=== PATIENT | female | born 1970 | race Two or more races ===

== ENCOUNTER 2018-02-14 06:00 | Day surgery (SDC) | payer OTHER ==
[~2018-02-14] VITALS: Ht 167.6 cm; Wt 67.9 kg
[~2018-02-14 06:00] MED LIST: SODIUM CHLORIDE 0.9% 1000ML 1,000 ML IV ONE
[2018-02-14] MEDS ORDERED: LISI10TA7 PO (07:41)
[2018-02-14] MEDS ORDERED: LIDOCAINE HCL-MPF 2% 5ML VIAL ONE (08:05)
[2018-02-14] MEDS ORDERED: PROPOFOL 10 MG/ML 20ML VIAL IV ONE ×3 (08:05→08:17)
[2018-02-14 09:11] VITALS: BP 91/41
[2018-02-14 09:16] VITALS: BP 101/44
[2018-02-14 09:20] VITALS: BP 122/62
[2018-02-14 09:29] VITALS: BP 117/60
== END 2018-02-14 09:59 | disposition home or self-care (01) ==
LOC: DAH 06:00
PROVIDERS: ATTEND Internal Medicine
DX: D12.3 Benign neoplasm of transverse colon (principal); K63.5 Polyp of colon; K52.9 Noninfective gastroenteritis and colitis, unspecified; K63.89 Other specified diseases of intestine; K31.89 Other diseases of stomach and duodenum; I10 Essential (primary) hypertension; K29.70 Gastritis, unspecified, without bleeding; K76.0 Fatty (change of) liver, not elsewhere classified
CPT/HCPCS: 36415; 43239; 45380; 84702; A4606; J2704 ×2; J3490; J7030